=== PATIENT | male | born 1960 | race Caucasian/White ===

== ENCOUNTER → 2016-09-18 | Outpatient (CLI) | payer MEDICARE ==
[~2016-09-18] MED LIST: ASPI-650 PO; ATOR40TA PO; CARV3.1212 PO; CLOP75TA22 PO; DOCU-30 PO; ESCI10TA10 PO; FURO20TA3 PO; HYDR-3144 PO; HYDR1TAB10 PO; LISI5TAB7 PO; POTA10TA90 PO; SIMV40TA PO
== END | disposition home or self-care (01) ==
LOC: CFH 11:48
PROVIDERS: ATTEND Internal Medicine Cardiovascular Disease
DX: I25.10 Atherosclerotic heart disease of native coronary artery without angina pectoris (principal); R10.11 Right upper quadrant pain; I25.2 Old myocardial infarction
CPT/HCPCS: 78452; 93017; A9502

== ENCOUNTER → 2016-10-16 | Outpatient (CLI) | payer MEDICARE | END | disposition home or self-care (01) | LOC: CFH 07:39 | PROVIDERS: ATTEND Internal Medicine Cardiovascular Disease | DX: I10 Essential (primary) hypertension (principal); R06.02 Shortness of breath | CPT/HCPCS: 93306 ==

== ENCOUNTER 2016-10-30 11:14 | Day surgery (SDC) | payer MEDICARE ==
[~2016-10-30] VITALS: Ht 167.6 cm; Wt 90.9 kg
[2016-10-30] MEDS ORDERED: SODIUM CHLORIDE 0.9% 1,000 ML IV SCH ×2 (11:34→13:54)
[2016-10-30 11:36] VITALS: BP 123/82
[2016-10-30] MEDS ORDERED: LIDOCAINE 2%, 20ML ONE (14:03)
[2016-10-30] MEDS ORDERED: MIDAZOLAM 1 MG/ML, 5ML ONE (14:04)
[2016-10-30] MEDS ORDERED: VERAPAMIL 2.5 MG/ML, 2ML ONE (14:04)
[2016-10-30] MEDS ORDERED: FENTANYL PF 100 MCG/2ML ONE (14:04)
[2016-10-30] MEDS ORDERED: ESCI10TA10 PO (14:13)
[2016-10-30] MEDS ORDERED: ASPI-496 PO (14:13)
[2016-10-30] MEDS ORDERED: CARV6.2512 PO (14:13)
[2016-10-30] MEDS ORDERED: ATOR80TA75 PO (14:13)
== END 2016-10-30 15:50 | disposition home or self-care (01) ==
LOC: CACL 11:14
PROVIDERS: ATTEND Internal Medicine Cardiovascular Disease
DX: I25.10 Atherosclerotic heart disease of native coronary artery without angina pectoris (principal); I25.82 Chronic total occlusion of coronary artery; I42.9 Cardiomyopathy, unspecified; I10 Essential (primary) hypertension; Z95.1 Presence of aortocoronary bypass graft; G47.30 Sleep apnea, unspecified; E78.5 Hyperlipidemia, unspecified; Z82.0 Family history of epilepsy and other diseases of the nervous system
CPT/HCPCS: 93459; 99152; C1769; C1894; J2250; J3010; J3490; Q9967

== ENCOUNTER 2017-02-09 14:36 | Inpatient (IN) | payer MEDICARE ==
[~2017-02-09] VITALS: Ht 167.6 cm; Wt 93.0 kg
[~2017-02-09 14:36] MED LIST changes: +ASPI-496 PO; +ATOR-2 PO; +CARV6.2512 PO; -CLOP75TA22 PO; +CLOP75TA52 PO; +DOCU-131 PO; -DOCU-30 PO; -HYDR-3144 PO; +HYDR-3245 PO; +POTA10TA6 PO; -POTA10TA90 PO
[2017-02-09] MEDS ORDERED: DILTIAZEM 125 MG in DEXTROSE 5% 100 ML IV SCH (15:11)
[2017-02-09] MEDS ORDERED: DILTIAZEM 5 MG/ML, 5ML IV ONE (15:30)
[2017-02-09] MEDS ORDERED: SODIUM CHLORIDE FLUSH 10ML SYR IVF ONE (15:30)
[2017-02-09] MEDS ORDERED: DILTIAZEM 5 MG/ML, 5ML ONE (15:32)
[2017-02-09] MEDS ORDERED: ENOXAPARIN 100 MG/ML SQ ONE (15:37)
[2017-02-09 15:42] LABS: HEMATOCRIT 50.3 % (39.2-51.8); WHITE BLOOD COUNT 11.6 x10^3/uL (3.4-10)
[2017-02-09 15:50] LABS: BLOOD UREA NITROGEN 12 mg/dL (7-18)
[2017-02-09 15:56] LABS: ASPARTATE AMINO TRANSFERASE 20 U/L (15-37)
[2017-02-09 16:04] LABS: IS PT STATUS REG ER OR PRE ER? YES
[2017-02-09] MEDS ORDERED: AMOX-291 PO (16:08)
[2017-02-09] MEDS ORDERED: CHOL400C PO (16:08)
[2017-02-09] MEDS ORDERED: ONDANSETRON 2MG/ML, 2ML IVPush PRN (16:30)
[2017-02-09] MEDS: DILTIAZEM 125 MG in SODIUM CHLORIDE 0.9% 100 ML IV SCH (19:30)
[2017-02-09] MEDS: METOPROLOL TARTRATE 25 MG TABLET PO SCH (20:00)
[2017-02-09 20:04] VITALS: BP 94/66
[2017-02-09] MEDS: AMOXICILLIN 500 MG CAPSULE PO SCH (21:25)
[2017-02-09] MEDS: ATORVASTATIN 80 MG TABLET PO SCH (21:25)
[2017-02-09] MEDS: SODIUM CHLORIDE 0.9% 1,000 ML IV SCH (21:26)
[2017-02-09] MEDS: CHOLECALCIFEROL 1,000 UNIT TABLET PO SCH (21:26)
[2017-02-10 02:13] VITALS: BP 102/59
[2017-02-10] MEDS: METOPROLOL TARTRATE 25 MG TABLET PO SCH ×2 (05:26→17:32)
[2017-02-10] MEDS: SODIUM CHLORIDE 0.9% 1,000 ML IV SCH (05:29)
[2017-02-10] MEDS: DILTIAZEM 125 MG in SODIUM CHLORIDE 0.9% 100 ML IV SCH ×2 (08:00→20:30)
[2017-02-10] MEDS: AMOXICILLIN 500 MG CAPSULE PO SCH ×2 (08:26→20:33)
[2017-02-10] MEDS: CITALOPRAM 20 MG TABLET PO SCH (08:26)
[2017-02-10] MEDS: CHOLECALCIFEROL 1,000 UNIT TABLET PO SCH ×2 (08:26→20:33)
[2017-02-10] MEDS: ASPIRIN 81 MG TABLET EC PO SCH (08:26)
[2017-02-10 08:36] VITALS: BP 124/85
[2017-02-10] MEDS: APIXABAN 5 MG TABLET PO SCH ×2 (11:30→20:33)
[2017-02-10 13:54] VITALS: BP 116/73
[2017-02-10] MEDS: LISINOPRIL 5 MG TABLET PO SCH (13:54)
[2017-02-10 20:17] VITALS: BP 112/77
[2017-02-10] MEDS: ATORVASTATIN 80 MG TABLET PO SCH (20:33)
[2017-02-11 00:53] VITALS: BP 103/70
[2017-02-11 05:44] VITALS: BP 110/74
[2017-02-11] MEDS: METOPROLOL TARTRATE 25 MG TABLET PO SCH (05:45)
[2017-02-11] MEDS: APIXABAN 5 MG TABLET PO SCH (09:44)
[2017-02-11] MEDS: CITALOPRAM 20 MG TABLET PO SCH (09:44)
[2017-02-11] MEDS: AMOXICILLIN 500 MG CAPSULE PO SCH (09:44)
[2017-02-11] MEDS: LISINOPRIL 5 MG TABLET PO SCH (09:44)
[2017-02-11] MEDS: CHOLECALCIFEROL 1,000 UNIT TABLET PO SCH (09:45)
[2017-02-11] MEDS: ASPIRIN 81 MG TABLET EC PO SCH (09:45)
[2017-02-11 10:40] VITALS: BP 122/71
[2017-02-11] MEDS ORDERED: APIX5TAB PO (13:02)
[2017-02-11] MEDS ORDERED: METO25TA35 PO (13:02)
[2017-02-11] MEDS ORDERED: LISI5TAB7 PO (13:02)
== END 2017-02-11 14:00 | disposition home or self-care (01) | DRG 309 ==
LOC: ED 16:07 → EDIP 16:12 → SUATTDRO 16:21 → ED 16:25 → 5SO 18:06 → DCLOUNGE 02-11 13:30
PROVIDERS: ATTEND Hospitalist
DX: I48.0 Paroxysmal atrial fibrillation (principal); D68.69 Other thrombophilia; Z95.1 Presence of aortocoronary bypass graft; J98.11 Atelectasis; I48.92 Unspecified atrial flutter; I10 Essential (primary) hypertension; E78.5 Hyperlipidemia, unspecified; E66.9 Obesity, unspecified; I25.5 Ischemic cardiomyopathy; G47.30 Sleep apnea, unspecified; I25.10 Atherosclerotic heart disease of native coronary artery without angina pectoris; I49.3 Ventricular premature depolarization; M06.9 Rheumatoid arthritis, unspecified; M19.90 Unspecified osteoarthritis, unspecified site; Z82.49 Family history of ischemic heart disease and other diseases of the circulatory system; I25.2 Old myocardial infarction; Z87.891 Personal history of nicotine dependence; Z88.1 Allergy status to other antibiotic agents; Z88.8 Allergy status to other drugs, medicaments and biological substances; Z88.5 Allergy status to narcotic agent; Z68.33 Body mass index [BMI] 33.0-33.9, adult
CPT/HCPCS: 36415; 71010; 80053; 83735; 83880; 84443; 84484; 85025; 85610; 85730; 87324; 93005; 93306; 96365; 96366; 96372; 96374; J1650; J7030

== ENCOUNTER → 2020-05-17 | Outpatient (CLI) | payer BC, MEDICARE ==
[~2020-05-17] MED LIST changes: +AMOX-291 PO; +APIX5TAB PO; +ATOR40TA78 PO; +CHOL400C PO; +ESCI20TA10 PO; +METO25TA35 PO; +METO25TA91 PO; +Vitamin D3 PO
[2020-05-17 16:48] LABS: BASOPHILS % (AUTO) 1 % (0-1); EOSINOPHILS % (AUTO) 2 % (1-7); LYMPHOCYTES % (AUTO) 31 % (22-44); MD NO; MEAN CORPUSCULAR HEMOGLOBIN 31.8 pg (27.5-34.5); MEAN CORPUSCULAR HGB CONC 33.9 g/dL (33.2-36.2); MEAN PLATELET VOLUME 8.7 fL (7.4-10.4); MONOCYTES % (AUTO) 6 % (2-9); NEUTROPHILS % (AUTO) 60 % (42-75); PLATELET COUNT 201 x10^3/uL (130-400); RED BLOOD COUNT 4.67 x10^6/uL (4.38-5.82); RED CELL DISTRIBUTION WIDTH 13.8 % (9.4-14.8)
[2020-05-17 16:54] LABS: MICROSCOPIC NOT IND
[2020-05-17 16:55] LABS: INTERNATIONAL NORMALIZED RATIO 1.06 (0.93-1.1); PROTHROMBIN TIME 11.2 Seconds (9.6-11.5)
[2020-05-17 16:56] LABS: ANION GAP 3 mmol/L (5-15); CALCIUM 9.6 mg/dL (8.5-10.1); CHLORIDE 107 mmol/L (98-107); CREATININE 0.81 mg/dL (0.7-1.3)
== END | disposition home or self-care (01) ==
LOC: STAR 15:06
PROVIDERS: ATTEND Neurological Surgery
DX: Z01.812 Encounter for preprocedural laboratory examination (principal); Z20.828 Contact with and (suspected) exposure to other viral communicable diseases; Z01.811 Encounter for preprocedural respiratory examination; Z01.810 Encounter for preprocedural cardiovascular examination; R82.90 Unspecified abnormal findings in urine; R94.31 Abnormal electrocardiogram [ECG] [EKG]; R79.1 Abnormal coagulation profile; M54.16 Radiculopathy, lumbar region; M54.5 Low back pain; M47.896 Other spondylosis, lumbar region; M51.34 Other intervertebral disc degeneration, thoracic region
CPT/HCPCS: 36415; 71046; 80048; 81003; 85025; 85610; 85730; 87635; 93005

== ENCOUNTER 2020-05-23 05:29 | Day surgery (SDC) | payer BC, MEDICARE ==
[~2020-05-23] VITALS: Ht 167.6 cm; Wt 83.9 kg
[2020-05-23 05:58] VITALS: BP 124/83
[2020-05-23] MEDS ORDERED: CHLORHEXIDINE 15 ML UDC MM ONE (06:00)
[2020-05-23] MEDS ORDERED: LACTATED RINGERS 1,000 ML IV SCH (06:00)
[2020-05-23] MEDS ORDERED: BUPIVACAINE/PF 0.25% ONE (06:29)
[2020-05-23] MEDS ORDERED: BACITRACIN 50,000 UNIT ONE (06:30)
[2020-05-23] MEDS ORDERED: EPINEPHRINE 1 MG/ML, 1ML ONE (06:30)
[2020-05-23] MEDS ORDERED: THROMBIN 5,000 UNIT VIAL TP ONE (06:30)
[2020-05-23] MEDS ORDERED: MIDAZOLAM 1 MG/ML, 2ML ONE (07:18)
[2020-05-23] MEDS ORDERED: PROPOFOL 50 ML ONE ×2 (07:19→08:16)
[2020-05-23] MEDS ORDERED: FENTANYL PF 250 MCG/5ML ONE ×2 (07:19→08:00)
[2020-05-23] MEDS ORDERED: ONDANSETRON 2MG/ML, 2ML ONE (08:29)
[2020-05-23] MEDS ORDERED: PROPOFOL 10 MG/ML, 20ML ONE (08:29)
[2020-05-23] MEDS ORDERED: DEXAMETHASONE 4 MG/ML, 1ML ONE (08:29)
[2020-05-23] MEDS ORDERED: NEOSTIGMINE 1 MG/ML, 10ML ONE (08:29)
[2020-05-23] MEDS ORDERED: GLYCOPYRROLATE 0.2MG/1ML, 5ML ONE (08:29)
[2020-05-23] MEDS ORDERED: ROCURONIUM 10MG/ML,5ML ONE (08:29)
[2020-05-23] MEDS ORDERED: CEFAZOLIN 1,000 MG ONE (08:29)
[2020-05-23] MEDS ORDERED: SUCCINYLCHOLINE 20 MG/ML, 10ML ONE (08:29)
[2020-05-23] MEDS ORDERED: HYDROmorphone 1 MG/ML, 1ML INJ IVPush PRN (08:30)
[2020-05-23] MEDS ORDERED: DIPHENHYDRAMINE 50 MG/ML, 1ML IVPush PRN (08:30)
[2020-05-23] MEDS ORDERED: HALOPERIDOL 5 MG/ML IV PRN (08:30)
[2020-05-23] MEDS ORDERED: HYDROcodone/APAP 7.5-325MG/15ML UDC PO PRN (08:30)
[2020-05-23] MEDS ORDERED: LABETALOL 5MG/ML, 20ML IV PRN (08:30)
[2020-05-23] MEDS ORDERED: hydrALAzine 20 MG/ML, 1ML IV PRN (08:30)
[2020-05-23] MEDS ORDERED: PROMETHAZINE 25 MG/ML, 1ML IVPush PRN (08:30)
[2020-05-23] MEDS ORDERED: FENTANYL PF 100 MCG/2ML IV PRN (08:30)
[2020-05-23] MEDS ORDERED: MEPERIDINE/PF 25MG/0.5ML IVPush PRN (08:30)
[2020-05-23] MEDS ORDERED: FENTANYL PF 100 MCG/2ML ONE ×2 (08:37→10:12)
[2020-05-23] MEDS ORDERED: METHOCARBAMOL 1,000 MG in DEXTROSE 5% 100 ML IV STA (09:26)
[2020-05-23] MEDS ORDERED: HYDROcodone/APAP 7.5-325MG/15ML UDC ONE (10:12)
== END 2020-05-23 12:45 | disposition home or self-care (01) ==
LOC: OUT 05:29
PROVIDERS: ATTEND Neurological Surgery
DX: M51.16 Intervertebral disc disorders with radiculopathy, lumbar region (principal); M47.26 Other spondylosis with radiculopathy, lumbar region; M48.061 Spinal stenosis, lumbar region without neurogenic claudication; M06.9 Rheumatoid arthritis, unspecified; I10 Essential (primary) hypertension; I25.10 Atherosclerotic heart disease of native coronary artery without angina pectoris; I25.2 Old myocardial infarction; F32.9 Major depressive disorder, single episode, unspecified; G47.33 Obstructive sleep apnea (adult) (pediatric); F12.90 Cannabis use, unspecified, uncomplicated; Z79.1 Long term (current) use of non-steroidal anti-inflammatories (NSAID); Z79.82 Long term (current) use of aspirin; Z79.891 Long term (current) use of opiate analgesic; Z79.899 Other long term (current) drug therapy; Z87.891 Personal history of nicotine dependence; Z88.5 Allergy status to narcotic agent; Z88.8 Allergy status to other drugs, medicaments and biological substances; Z90.49 Acquired absence of other specified parts of digestive tract; Z95.1 Presence of aortocoronary bypass graft; Z96.653 Presence of artificial knee joint, bilateral; Z98.890 Other specified postprocedural states
CPT/HCPCS: 63030; 72100; 95938; 95941; C1729; J0171; J0330; J0690; J1100; J2250; J2405; J2704; J2710; J2800; J3010; J7120